=== PATIENT | female | born 1995 | race Two or more races ===

== ENCOUNTER 2020-03-26 06:00 | Emergency (ER) | payer MEDICAID ==
[~2020-03-26] VITALS: Ht 152.4 cm; Wt 97.3 kg
[2020-03-26 06:03] VITALS: BP 131/82
--- NOTE | 2020-03-26 07:07 | NUR ---
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
--- NOTE | 2020-03-26 07:11 | NUR ---
NIL X3.
== END 2020-03-26 07:20 | disposition left against medical advice (07) ==
LOC: ED 07:14
DX: R10.11 Right upper quadrant pain (principal); Z53.21 Procedure and treatment not carried out due to patient leaving prior to being seen by health care provider